=== PATIENT | male | born 1970 | race Caucasian/White ===

== ENCOUNTER → 2024-08-29 | Emergency (ER) | payer MEDICAID, OTHER ==
[~2024-08-29] VITALS: Ht 185.4 cm; Wt 103.6 kg
[2024-08-29 12:41] VITALS: BP 170/97; PULSE 76; RESP 15; TEMP 98.7; O2SAT 98
== END | disposition left against medical advice (07) ==
LOC: ER 12:17
DX: M54.9 Dorsalgia, unspecified (principal); Z53.21 Procedure and treatment not carried out due to patient leaving prior to being seen by health care provider